=== PATIENT | female | born 1995 | race African-American/Black ===

== ENCOUNTER 2021-07-24 13:29 | Emergency (ER) | payer MEDICAID, SELFPAY ==
[2021-07-24 13:33] VITALS: BP 110/71; PULSE 78; RESP 18; TEMP 36.8; O2SAT 98; BMI 22.1
[2021-07-24 13:48] LABS: MANUAL DIFF FLAG NO
[2021-07-24 13:52] LABS: Basophils Absolute Auto 0.1 X10*3/uL (0.0-0.2); Eosinophils Absolute Auto 0.1 X10*3/uL (0.0-0.4); Eosinophils Percent Auto 2.7 % (0-4); Hematocrit 35.4 % (37.0-47.0); Hemoglobin 11.7 g/dl (12.0-16.0); Imm Gran Abs Auto 0.01 X10*3/uL (0.00-0.03); Imm Gran Pct Auto 0.2 % (0.0-0.4); Lymphocytes Absolute Auto 1.6 X10*3/uL (1.2-4.9); Mean Corpuscular HGB Conc 33.1 g/dl (31.0-35.0); Mean Corpuscular Hemoglobin 32.5 pg (27.0-33.0); Mean Corpuscular Volume 98.3 fL (80.0-98.0); Mean Platelet Volume 10.4 fL (9.4-12.3); Monocytes Absolute Auto 0.4 X10*3/uL (0.1-1.2); Monocytes Percent Auto 7.4 % (2-11); Neutrophils Percent Auto 57.7 % (45-73); Platelet Count 297 X10*3/uL (160-400); White Blood Count 5.1 X10*3/uL (4.8-10.8)
[2021-07-24 14:05] LABS: Anion Gap 13 (12-20); Blood Urea Nitrogen 8 mg/dL (9-16); Calcium 9.4 mg/dL (8.4-10.2); Carbon Dioxide 24 mmol/L (22-29); Chloride 107 mmol/L (96-108); Creatinine Clr Calc Pharmacy 91.5; Estimated Glomerular Filt Rate > 60; Glucose Random 81 mg/dL (60-115); Potassium 3.9 mmol/L (3.3-5.1); Sodium 140 mmol/L (135-145)
[2021-07-24 16:12] LABS: Alanine Aminotransferase 34 U/L (0-31); Albumin Level 4.4 g/dL (3.5-5.0); Alkaline Phosphatase 59 U/L (39-117); Aspartate Amino Transferase 23 U/L (5-31); Bilirubin Direct 0.2 mg/dL (0.0-0.5); Bilirubin Total 0.5 mg/dL (0.0-1.0); Lipase 10 U/L (8-78); Magnesium 2.1 mg/dL (1.6-2.6)
[2021-07-24 16:32] LABS: TSH reflex Free T4 0.57 uIU/mL (0.32-4.0)
[2021-07-24 16:58] VITALS: BP 107/57; PULSE 60; RESP 16; TEMP 36.4; O2SAT 97
--- NOTE | 2021-07-24 17:09 | ED.GENADULT ---
HPI - General Adult General Chief complaint: General Medical Stated complaint: THYROID Time Seen by Provider: 07/24/21 15:46 Source: patient Mode of arrival: ambulatory Limitations: no limitations History of Present Illness HPI narrative: 25 yold female tranisioning to male with 1 year diagnosis of thyroid issues presents to the ED for evaluation. Patient states for 1 year having some hair loss, weight loss, increase body temperature, fatigue, agitation and abdominal pain, and fatigue. Patient states she was diagnosed in [place] last year with hyperthyroidism, but never follow up for treatment due to her moving multiple times. Patient states mutliple family members with pmh of thyroid diseases. patient denies any fever, chills, throat pain, neck swelling, heart palpitations, chest pain, sweaating, or shortness of breath. Patient states no bodyaches, coughing, chest pain, shortness of breath, dysiuria, hematuria, flank pain, vaginal discharge, or vaginal bleeding. Patient states not able to have a PCP in [place] due to [employer] [place] issues. She states the hospital she referred to for PCP did not exist. Patient has not had any sex organ surgery or hormonal treatment. Related Data Allergies Allergy/AdvReac Type Severity Reaction Status Date / Time No Known Allergies Allergy Verified 07/24/21 13:32 Review of Systems Review of Systems: thyroid. weight loss, thinning of hair, fatigue, agitiation, increase body temperature, and mild abdominal pain for one year. Yes all other systems are reviewed and are negative [facility] Social History Social History Advance Directives: No Advance Directives Information Provided: No Physical Exam ED Vital Signs: Vital Signs - 24 hr 07/24/21 13:33 07/24/21 16:58 Temperature 98.3 F 97.6 F Pulse Rate 78 60 Respiratory Rate 18 16 Blood Pressure 110/71 107/57 L Pulse Oximetry 98 97 BMI result Body Mass Index 22.1 Const General: cooperative, healthy appearing, comfortable, no acute distress, well developed, alert, awake and Physically active Orientation/consciousness: patient oriented x3 HENMT Head: Yes normal to inspection, Yes No palpable skull fracture present, Yes normocephalic, Yes atraumatic and No abrasion Eyes General: appearance normal, both eyes and all related structures Neck Neck: Yes normal visual inspection, Yes full ROM, Yes no lymphadenopathy, Yes no meningeal signs, Yes trachea midline, Yes supple, No anterior neck swelling and No tender Chest Chest palpation & inspection: normal inspection of the chest and normal palpation of entire chest wall Resp Effort & Inspection: normal respiratory effort and able to speak in complete sentences Auscultation: clear to auscultation bilaterally Cardio Jugular venous distension: no JVD Heart sounds: S1 normal heart sound present and S2 normal heart sound present GI Inspection: Yes normal to inspection and No abdominal wall ecchymosis Palpation (GI): Soft to palpation, not firm, nontender, no guarding and not rigid General: No CVA tenderness and Yes no CVA tenderness Back/Spine/Pelvis Back: no CVA tenderness, No CVA tenderness and No back tenderness Skin General skin exam: no rashes or lesions noted and elasticity normal Neuro General: patient oriented x3, gait normal, no meningeal signs and CN's II-XI intact bilaterally Cranial nerves: Yes CN's II-XII intact bilaterally Extrem General: Yes normal to inspection and Yes full ROM Psych Appearance: grossly normal, well kempt and not disheveled Course Course Course Narrative: Labs ordered including TSH, U, UCG Reevaluation(s) Reevaluation #1: Labs are normnal. History and phsyical exam does not indicate thryoid storm or thyroiditis. Abdomen is bening on palpation. Patient is well appearing. Case mangmary Patricia spoke with patient to rectify insurance issues for patient to get follow up for follow up and management of her PCP. Patricia gave patient information for a primary clinic office in [facility] that specialses in Transgender patient/youths and endocrine issues. Patient is safe for discharge Time: 17:50 Medical Decision Making [facility] Narrative Medical decision making narrative: Normal exam Lab Data Result diagrams: 07/24/21 13:43 07/24/21 13:43 Labs: Lab Results 07/24/21 07/24/21 07/24/21 Range/Units 13:43 13:43 17:02 WBC 5.1 (4.8-10.8) X10*3/uL RBC 3.60 L (4.20-5.50) X10*6/uL Hgb 11.7 L (12.0-16.0) g/dl Hct 35.4 L (37.0-47.0) % MCV 98.3 H (80.0-98.0) fL MCH 32.5 (27.0-33.0) pg MCHC 33.1 (31.0-35.0) g/dl RDW 13.0 (11.0-16.0) % Plt Count 297 (160-400) X10*3/uL MPV 10.4 (9.4-12.3) fL Immature Gran % (Auto) 0.2 (0.0-0.4) % Neut % (Auto) 57.7 (45-73) % Lymph % (Auto) 31.0 (20-40) % [place] % (Auto) 7.4 (2-11) % Eos % (Auto) 2.7 (0-4) % Baso % (Auto) 1.0 (0-2) % Lymph # (Auto) 1.6 (1.2-4.9) X10*3/uL [place] # (Auto) 0.4 (0.1-1.2) X10*3/uL Eos # (Auto) 0.1 (0.0-0.4) X10*3/uL Baso # (Auto) 0.1 (0.0-0.2) X10*3/uL Abs Immat Gran (auto) 0.01 (0.00-0.03) X10*3/uL Absolute Neuts (auto) 3.0 (2.0-8.3) x10*3/uL Absolute Nucleated RBC 0.000 (0.0-0.012) X10*3/uL Nucleated RBC % (auto) 0.0 (0.0-0.2) /100WBC Sodium 140 (135-145) mmol/L Potassium 3.9 (3.3-5.1) mmol/L Chloride 107 (96-108) mmol/L Carbon Dioxide 24 (22-29) mmol/L Anion Gap 13 (12-20) BUN 8 L (9-16) mg/dL Creatinine 0.79 (0.5-1.4) mg/dL Estim Creat Clear Calc 91.5 Estimated GFR > 60 Random Glucose 81 (60-115) mg/dL Calcium 9.4 (8.4-10.2) mg/dL Magnesium 2.1 (1.6-2.6) mg/dL Total Bilirubin 0.5 (0.0-1.0) mg/dL Direct Bilirubin 0.2 (0.0-0.5) mg/dL AST 23 (5-31) U/L ALT 34 H (0-31) U/L Alkaline Phosphatase 59 (39-117) U/L Total Protein 7.0 (6.5-8.0) g/dL Albumin 4.4 (3.5-5.0) g/dL Lipase 10 (8-78) U/L TSH 0.57 (0.32-4.0) uIU/mL Urine Color STRAW Urine Appearance CLEAR Urine pH 7.5 (5.0-8.0) Ur Specific Bath 1.010 (1.005-1.025) Urine Protein NEG (NEG-TRACE) MG/DL Urine Glucose (UA) NEG (NEG) MG/DL Urine Ketones NEG (NEG) MG/DL Urine Blood NEG (NEG) Urine Nitrite NEG (NEG) Ur Leukocyte Esterase NEG (NEG) Urine Test (NEGATIVE) 07/24/21 Range/Units 17:02 WBC (4.8-10.8) X10*3/uL RBC (4.20-5.50) X10*6/uL Hgb (12.0-16.0) g/dl Hct (37.0-47.0) % MCV (80.0-98.0) fL MCH (27.0-33.0) pg MCHC (31.0-35.0) g/dl RDW (11.0-16.0) % Plt Count (160-400) X10*3/uL MPV (9.4-12.3) fL Immature Gran % (Auto) (0.0-0.4) % Neut % (Auto) (45-73) % Lymph % (Auto) (20-40) % [place] % (Auto) (2-11) % Eos % (Auto) (0-4) % Baso % (Auto) (0-2) % Lymph # (Auto) (1.2-4.9) X10*3/uL [place] # (Auto) (0.1-1.2) X10*3/uL Eos # (Auto) (0.0-0.4) X10*3/uL Baso # (Auto) (0.0-0.2) X10*3/uL Abs Immat Gran (auto) (0.00-0.03) X10*3/uL Absolute Neuts (auto) (2.0-8.3) x10*3/uL Absolute Nucleated RBC (0.0-0.012) X10*3/uL Nucleated RBC % (auto) (0.0-0.2) /100WBC Sodium (135-145) mmol/L Potassium (3.3-5.1) mmol/L Chloride (96-108) mmol/L Carbon Dioxide (22-29) mmol/L Anion Gap (12-20) BUN (9-16) mg/dL Creatinine (0.5-1.4) mg/dL Estim Creat Clear Calc Estimated GFR Random Glucose (60-115) mg/dL Calcium (8.4-10.2) mg/dL Magnesium (1.6-2.6) mg/dL Total Bilirubin (0.0-1.0) mg/dL Direct Bilirubin (0.0-0.5) mg/dL AST (5-31) U/L ALT (0-31) U/L Alkaline Phosphatase (39-117) U/L Total Protein (6.5-8.0) g/dL Albumin (3.5-5.0) g/dL Lipase (8-78) U/L TSH (0.32-4.0) uIU/mL Urine Color Urine Appearance Urine pH (5.0-8.0) Ur Specific Bath (1.005-1.025) Urine Protein (NEG-TRACE) MG/DL Urine Glucose (UA) (NEG) MG/DL Urine Ketones (NEG) MG/DL Urine Blood (NEG) Urine Nitrite (NEG) Ur Leukocyte Esterase (NEG) Urine Test NEGATIVE (NEGATIVE) Discharge Plan Discharge Clinical Impression: Normal exam Patient Disposition: Home, Self-Care Instructions: Normal Exam (ED) Additional Instructions: Return to the ED for palpitations, throat pain, neck swelling, fever, chills, headche, chest pain, shortness of breath, abdominal pain, diarrhea, dysura, hematuria, vaginal bleeding, worsening weight loss, or any other concerning symptoms. Please call and follow up with primary Clinic you were referred to by our Case manger. Interventions: ED Discharge Assessment Last Done: 07/24/21 18:02 Discharge Date/Time: 07/24/21 18:03 Print Language: Welsh
[2021-07-24 17:12] LABS: Appearance Urine CLEAR; Color Urine STRAW; Glucose Urine UA NEG (NEG); Leukocyte Esterase Urine NEG (NEG); Nitrite Urine NEG (NEG); PH 7.5 (5.0-8.0); Urine Blood NEG (NEG); Urine Ketones NEG (NEG); Urine Protein NEG (NEG-TRACE)
[2021-07-24 17:15] LABS: UPreg QC Valid YES; Urine Pregnancy NEGATIVE (NEGATIVE)
--- NOTE | 2021-07-24 17:41 | MHC.CM.ED ---
CM was asked to meet with pt by Efrain GARCIA in regards to [employer] insurance and PCP appointments. CM spoke with registration and with patient. Per registration, pt was assigned Dr. Rodriguez at [facility] in [place]. Explained to pt that he would need to call and make an appointment with the office. Dr Rodriguez and Dr. Kamilah Gutierrez work in this office. [phone]. CM explained to pt that Dr. Rodriguez specializes in transgender care and that this could be a good fit for him. Pt is transitioning female to male. No hormone therapy. Identifies as male. Contact card given for [facility]. Efrain GARCIA aware. Pt will be d/c home.
== END 2021-07-24 18:03 | disposition home or self-care (01) ==
PROVIDERS: Physician Assistant; Emergency Provider Internal Medicine
DX: Z03.89 Encounter for observation for other suspected diseases and conditions ruled out (principal); F64.0 Transsexualism; Z83.49 Family history of other endocrine, nutritional and metabolic diseases
CPT/HCPCS: 36415; 80048; 80076; 81003; 81025; 83690; 83735; 84443; 85025; 99283

== ENCOUNTER 2021-08-11 19:59 | Emergency (ER) | payer MEDICAID, SELFPAY ==
[2021-08-11 20:28] VITALS: BP 101/60; PULSE 69; RESP 18; TEMP 36.6; O2SAT 100; BMI 22.1
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
[2021-08-11] MEDS: Ibuprofen 600 MG TABLET PO (21:36)
== END 2021-08-11 21:47 | disposition home or self-care (01) ==
PROVIDERS: Emergency Provider Emergency Medicine; PCP Family Medicine
DX: S09.90XA Unspecified injury of head, initial encounter (principal); V43.62XA Car passenger injured in collision with other type car in traffic accident, initial encounter; Y93.9 Activity, unspecified; Y92.410 Unspecified street and highway as the place of occurrence of the external cause; Y99.9 Unspecified external cause status
CPT/HCPCS: 99283